=== PATIENT | female | born 1945 | race Caucasian/White ===

== ENCOUNTER 2019-05-20 13:07 | Emergency (ER) | payer MEDICARE, OTHER ==
[~2019-05-20] VITALS: Ht 167.6 cm; Wt 117.9 kg
[~2019-05-20 13:07] MED LIST: B/P; CHOLESTEROL MED; DIOVAN HCT 1601 EACH PO; HYDROCODONE-APA1 TA1 PO; PROAIR HFA8.5 GM INH; XANAX 0.25 MG0.25 MG PO; ZPAK PO
[2019-05-20 13:35] VITALS: BP 156/75
== END 2019-05-20 13:46 | disposition home or self-care (01) ==
LOC: M.ERS 13:07
DX: R11.2 Nausea with vomiting, unspecified (principal)

== ENCOUNTER → 2019-11-25 | Outpatient (CLI) | payer MEDICARE, OTHER | LOC: M.MRI 14:07 | DX: S96.912A Strain of unspecified muscle and tendon at ankle and foot level, left foot, initial encounter (principal); X58.XXXA Exposure to other specified factors, initial encounter; Y93.89 Activity, other specified; Y92.89 Other specified places as the place of occurrence of the external cause; Y99.8 Other external cause status ==

== ENCOUNTER → 2020-02-10 | Outpatient (CLI) | payer MEDICARE, OTHER | LOC: M.CT 14:10 | DX: M19.012 Primary osteoarthritis, left shoulder (principal); M85.88 Other specified disorders of bone density and structure, other site; R07.9 Chest pain, unspecified; Z80.1 Family history of malignant neoplasm of trachea, bronchus and lung; Z85.3 Personal history of malignant neoplasm of breast; Z87.891 Personal history of nicotine dependence ==

== ENCOUNTER → 2020-02-22 | Outpatient (CLI) | payer MEDICARE, OTHER | LOC: M.RAD 08:55 | PROVIDERS: ATTEND Family Medicine | DX: M85.88 Other specified disorders of bone density and structure, other site (principal) ==